=== PATIENT | female | born 1950 | race Caucasian/White ===

== ENCOUNTER 2025-02-13 15:38 | Emergency (ER) | payer MEDICARE, SELFPAY ==
[2025-02-13 15:45] VITALS: BP 137/66; PULSE 80; RESP 16; TEMP 36.8; O2SAT 96; BMI 33.4
--- NOTE | 2025-02-13 16:27 | XRR_ITS ---
PROCEDURE INFORMATION: Exam: XR Right Foot Exam date and time: 02/13/2025 4:38 PM Age: 74 years old Clinical indication: Pain; Foot; Right; Additional info: Pain, mild lateral swelling TECHNIQUE: Imaging protocol: Radiologic exam of the right foot. Views: 3 or more views. COMPARISON: No relevant prior studies available. FINDINGS: Bones/joints: There is no acute fracture involving the right foot. There are mild degenerative changes of the midfoot with joint space narrowing and osteophyte formation. There is a small calcaneal spur. Soft tissues: There is mild soft tissue swelling at the dorsum of the midfoot. XR/XR foot RT min 3V* [id number] IMPRESSION: 1. No evidence of right foot fracture. 2. Mild osteoarthritis.
[2025-02-13] MEDS: HYDROcodone-acetaminophen 5-325 mg Tablet 1 TAB PO (16:56)
[2025-02-13 17:07] LABS: Basophils % 0.2 %; Eosinophils # 0.2 10^3/uL (0.0-0.8); Eosinophils % 2.4 %; Hematocrit 45.9 % (36-47); Lymphocytes # 2.1 10^3/uL (0.8-4.8); Lymphocytes % 21.1 %; Mean Corpuscular HGB Conc 31.4 g/dL (30-55); Mean Corpuscular Hemoglobin 27.5 pg (27-33); Mean Corpuscular Volume 87.6 fl (85-98); Mean Platelet Volume 10.3 fL (7.4-10.4); Monocytes % 9.7 %; Neutrophils % 66.4 %; Nucleated Red Blood Cells % 0 %; Platelet Count 266 10^3/cmm (157-399); Red Blood Count 5.24 10^6/uL (3.85-5.65); Red Cell Distribution Width 13.3 % (12.1-15.1)
--- NOTE | 2025-02-13 17:09 | ED_ITS ---
HPI - Extremity Problem 2 General: Chief complaint: Extremity Problem,Nontraumatic Stated complaint: rt foot pain/tendernss Time Seen by Provider: 02/13/25 16:17 Source: patient Mode of arrival: wheelchair Limitations: no limitations History of Present Illness: Patient is 74-year-old female that presents to the emergency department with pain in her right foot. She states she did not have any traumatic injury that she can recall. She reports that this woke her up around 3 this morning. She reports pain is worse with any movement or trying to bear weight. She denies any history of gout. She does have some mild swelling to the foot. She denies any calf pain or knee pain. She states the pain is worse when she tries to bear weight. She denies any fever or chills. She denies any known history of gout. She states she did take some naproxen which helped the symptoms improve. She presents to the emergency department for further evaluation and treatment. Associated symptoms: Deny chest pain, fever(s) or rash Related Data Previous Rx's ?Medication ?Instructions ?Recorded hydrocodone 5 mg-acetaminophen 325 1 tab PO Q4H PRN pa in #10 tabs 02/13/25 mg tablet prednisone 20 mg tablet 40 mg (2 x 20 mg) PO DAILY # 8 tabs 02/13/25 Allergies Allergy/AdvReac Type Severity Reaction Status Date / Time Sulfa (Sulfonamide Allergy Intermediate ALGY-Rash Unverified 02/13/25 16:29 Antibiotics) Review of Systems 2 General: Reports: 10 or more systems reviewed and unremarkable except in HPI and below Const: Denies: fever(s) or chills Eyes: Denies: change in vision ENMT: Denies: throat pain or ear or mastoid pain Card: Denies: chest pain or palpitations Resp: Denies: dyspnea, productive cough, non-productive cough, wheezing or stridor GI: Denies: abdominal pain, nausea or vomiting : Denies: flank pain, difficulty voiding or dysuria Musc: Reports: extremity pain (Right foot pain) and joint swelling (Right foot) Skin/Breast: Denies: rash, pruritus or erythema Neuro: Denies: headache(s), numbness in extremities or weakness in extremities Psych: Denies: anxiety, depression or mood swings Endo: Denies: polyuria, polydipsia or tired all the time [place]/Lymph: Denies: petechiae All/Imm: Denies: tongue swelling PFSH ED 2 PFSH: Medical History (Updated 02/13/25 @ 18:02 by YAMILET Zavala) Thyroid cancer Surgical History (Updated 02/13/25 @ 17:12 by YAMILET Zavala) H/O thyroidectomy Social History (Updated 02/13/25 @ 17:56 by YAMILET Zavala) Smoking and tobacco/nicotine status: former use of tobacco/nicotine Procedures Orthopedic Splinting/Casting Injury #1: Side: right Lower Extremity Injury Location: foot Lower Extremity Immobilizer: post-op shoe Additional Comments: Prefabricated postoperative shoe was placed by the ER nurse. The patient has a walker at home that she can use. Course 2 Vital Signs: Vital signs: Vital Signs Temperature 98.3 F 02/13/25 15:45 Pulse Rate 82 02/13/25 17:17 Respiratory Rate 16 02/13/25 15:45 Blood Pressure 175/99 02/13/25 17:17 Pulse Oximetry 99 02/13/25 17:17 Oxygen Delivery Me thod Room Air 02/13/25 15:45 MDM - Extremity (Nontraumatic) Medical Decision Making Patient was advised that the exam, lab and imaging findings. We are waiting on the imaging results. There was no acute fracture noted. The patient does have a bone spur on the front of the heel. Patient did not have an elevated white blood cell count and her uric acid level was normal. She does not have any significant tenderness in this area. Patient was advised to use her current walker as directed. She was placed in a postoperative shoe by the ER nurse. I advised that she use the medications as directed and follow-up with the primary care provider in 1 week for recheck. I recommended that she elevate the extremity, ice for 15 minutes at a time, 5 times throughout the day and return to the emergency department with any worsening symptoms such as red streaking, fever, increased pain or any other worsening symptoms. The patient and her expressed understanding. Lab Data I reviewed the patient's lab results. 02/13/25 17:03 02/13/25 17:03 Laboratory Results WBC 9.80 10^3/uL (3.29-11.43) 02/13/25 17:03 RBC 5.24 10^6/uL (3.85-5.65) 02/13/25 17:03 Hgb 14.40 g/dL (11.27-16.99) 02/13/25 17:03 Hct 45.9 % (36-47) 02/13/25 17:03 MCV 87.6 fl (85-98) 02/13/25 17:03 MCH 27.5 pg (27-33) 02/13/25 17:03 MCHC 31.4 g/dL (30-55) 02/13/25 17:03 RDW 13.3 % (12.1-15.1) 02/13/25 17:03 Plt Count 266 10^3/cmm (157-399) 02/13/25 17:03 MPV 10.3 fL (7.4-10.4) 02/13/25 17:03 Neut % (Auto) 66.4 % 02/13/25 17:03 Lymph % (Auto) 21.1 % 02/13/25 17:03 [place] % (Auto) 9.7 % 02/13/25 17:03 Eos % (Auto) 2.4 % 02/13/25 17:03 Baso % (Auto) 0.2 % 02/13/25 17:03 Neut # (Auto) 6.50 10^3/uL (1.8-7.7) 02/13/25 17:03 Lymph # (Auto) 2.1 10^3/uL (0.8-4.8) 02/13/25 17:03 [place] # (Auto) 1.0 10^3/uL (0.2-0.9) H 02/13/25 17:03 Eos # (Auto) 0.2 10^3/uL (0.0-0.8) 02/13/25 17:03 Baso # (Auto) 0.0 10^3/uL (0.0-0.1) 02/13/25 17:03 Nucleated RBC % (auto) 0 % 02/13/25 17:03 Nucleated RBCs # 0.0 /100WBC 02/13/25 17:03 Sodium 138 mmol/L (136-145) 02/13/25 17:03 Potassium 4.2 mmol/L (3.5-5.1) 02/13/25 17:03 Chloride 103 mmol/L (98-107) 02/13/25 17:03 Carbon Dioxide 25 mmol/L (22-29) 02/13/25 17:03 Anion Gap 14.2 (5-19) 02/13/25 17:03 BUN 16 mg/dL (8-23) 02/13/25 17:03 Creatinine 0.8 mg/dL (0.5-0.9) 02/13/25 17:03 GFR Calculation Not Reportable 02/13/25 17:03 Glucose 91 mg/dL (65-115) 02/13/25 17:03 Calculated Osmolality 287 mOsm/kg (285-295) 02/13/25 17:03 Uric Acid 4.7 mg/dL (2.4-5.7) 02/13/25 17:03 Calcium 9.1 mg/dL (8.5-10.5) 02/13/25 17:03 Total Bilirubin 0.5 mg/dL (0.15-1.2) 02/13/25 17:03 AST 11 U/L (0-32) 02/13/25 17:03 ALT 7 U/L (0-33) 02/13/25 17:03 Alkaline Phosphatase 100 U/L (35-105) 02/13/25 17:03 Total Protein 6.9 g/dL (6.6-8.7) 02/13/25 17:03 Albumin 3.8 g/dL (3.5-5.2) 02/13/25 17:03 Globulin 3.1 g/dL (1.3-4.6) 02/13/25 17:03 XR interpretation done by ED provider, pending radiology final review ED provider radiology interpretation(s): Bone spur on the anterior portion of the calcaneus. No acute findings. Awaiting radiologist interpretation. Critical Care Time 2 Critical Care Time: Critical Care Time: No Discharge Plan Discharge Patient Disposition: Home Clinical Impression: Acute pain of right foot Condition: Stable Prescriptions: New hydrocodone-acetaminophen 5-325 mg tablet 1 tab PO Q4H PRN (Reason: pain) Qty: 10 0RF prednisone 20 mg tablet 40 mg PO DAILY Qty: 8 0RF Discharge Orders: Discharge ED (Routine); Ordered 02/13/25 Ordered By: Saul Erwin Referrals: Krista Louie NP [Primary Care Provider, Nurse Practitioner] Discharge Diet: Usual diet Discharge Activity: Increase activity as tolerated Patient Instructions: Opioid Safety, Pain Management, Arthralgia (ED) Activity Restrictions/Additional Instructions: Take medications as directed. Your prescriptions were sent electronically to the [facility] pharmacy. Elevate the foot, ice 20 minutes at a time, 5 times throughout the day as needed for pain or swelling. Use the postoperative shoe and your walker as directed. Avoid activities make the pain worse. Follow-up with your primary care provider in 1 week for recheck. Return to the emergency department with any worsening symptoms such as increased pain, red streaking, fever or any other worsening symptoms. Print Language: Andorran Coding Level of Care Code ED Ground Transportation Operator for Ashleigh Mckeon
[2025-02-13 17:17] VITALS: BP 175/99; PULSE 82; O2SAT 99
[2025-02-13 17:24] LABS: Alanine Aminotransferase 7 U/L (0-33); Albumin Level 3.8 g/dL (3.5-5.2); Alkaline Phosphatase 100 U/L (35-105); Anion Gap 14.2 (5-19); Aspartate Amino Transferase 11 U/L (0-32); Blood Urea Nitrogen 16 mg/dL (8-23); Calcium 9.1 mg/dL (8.5-10.5); Carbon Dioxide 25 mmol/L (22-29); Chloride 103 mmol/L (98-107); Creatinine Clr Calc Pharmacy 77.3729; Globulin 3.1 g/dL (1.3-4.6); Glucose 91 mg/dL (65-115); Osmolality Calculated 287 mOsm/kg (285-295); Potassium 4.2 mmol/L (3.5-5.1); Sodium 138 mmol/L (136-145); Total Bilirubin 0.5 mg/dL (0.15-1.2); Total Protein 6.9 g/dL (6.6-8.7); Uric Acid 4.7 mg/dL (2.4-5.7)
[2025-02-13 18:06] VITALS: BP 116/63; PULSE 82; RESP 18; O2SAT 99
[2025-02-13] MEDS: predniSONE 20 mg Tablet 40 MG PO (18:06)
[2025-02-13 18:42] VITALS: BP 147/83; PULSE 87; O2SAT 98
== END 2025-02-13 18:43 | disposition home or self-care (01) ==
PROVIDERS: Emergency Provider Physician Assistant; PCP Nurse Practitioner
DX: M79.671 Pain in right foot (principal); Z85.850 Personal history of malignant neoplasm of thyroid; Z87.891 Personal history of nicotine dependence
CPT/HCPCS: 12345; 36415; 73630; 80053; 84550; 85025; 99284; J7512; J9999